=== PATIENT | male | born 1965 | race Hispanic/Latino ===

== ENCOUNTER → 2018-07-18 | Outpatient (CLI) | payer BC ==
--- NOTE | 2018-07-18 10:54 | Diagnostic Imaging Report ---
MRI of the right shoulder without contrast. History: Shoulder pain. Decreased range of motion. Pain not responding to conservative management. Comparison: None Technique: Coronal PD FS, sagital PD FS, and axial PD and PD FS. Findings: Rotator cuff: There is rotator cuff tendinosis with a chronic appearing full-thickness tear involving the supraspinatus and infraspinatus tendons at the humeral insertion site. There is retraction of the torn fibers to the level of the glenoid. There is marked muscle atrophy best seen on sagittal image 22. Additionally, there is subscapularis tendinosis. The teres minor tendon is intact. There are reactive changes in the superior humerus. Osseous acromion complex: Type II acromion with mild lateral downsloping. The humeral head approaches the undersurface of the acromion. Moderate degenerative arthrosis at the acromioclavicular joint with undersurface spurring. Glenohumeral joint: Degeneration and fraying of the labrum. The articular cartilage surfaces are slightly thin. There is a small effusion and mild synovitis in the rotator interval and subcoracoid space. Biceps tendon: Intra-articular biceps tendinosis with fraying at the biceps anchor. Other findings: Negative for muscle denervation or osseous fracture. Impression: Rotator cuff tendinosis with a chronic appearing full-thickness tear involving the supraspinatus and infraspinatus tendons at the humeral insertion site. There is retraction of the torn fibers to the level of the glenoid. There is marked muscle atrophy. Moderate degenerative arthrosis at the acromioclavicular joint. Intra-articular biceps tendinosis with fraying at the biceps anchor. Signed by: Dr. Sachin Houston M.D. on 07/18/2018 10:51 AM
--- NOTE | 2018-07-18 10:57 | Diagnostic Imaging Report ---
MRI of the left shoulder without contrast. History: Shoulder pain. Decreased range of motion. Pain not responding to conservative management. Comparison: None Technique: Coronal PD FS, sagital PD FS, and axial PD and PD FS. Findings: Rotator cuff: There is rotator cuff tendinosis with a chronic appearing full-thickness tear involving the subscapularis tendon at the humeral insertion site. There is retraction of the torn fibers to the level of the glenoid. There is marked muscle atrophy best seen on sagittal image 24. Additionally, there is supraspinatus and infraspinatus tendinosis. The teres minor tendon is intact. There are reactive changes in the superior humerus. Osseous acromion complex: Type II acromion with mild lateral downsloping. The humeral head is well-seated in the glenoid fossa. Moderate degenerative arthrosis at the acromioclavicular joint with undersurface spurring and narrowing of the supraspinatus tendon outlet. Glenohumeral joint: Degeneration and fraying of the labrum. The articular cartilage surfaces are slightly thin. There is a small effusion and mild synovitis in the rotator interval and subcoracoid space. Biceps tendon: Intra-articular biceps tendinosis with fraying at the biceps anchor. Other findings: Negative for muscle denervation or osseous fracture. Impression: Rotator cuff tendinosis with a chronic appearing full-thickness tear involving the subscapularis tendon at the humeral insertion site. There is retraction of the torn fibers to the level of the glenoid. There is marked muscle atrophy. Moderate degenerative arthrosis at the acromioclavicular joint. Intra-articular biceps tendinosis with fraying at the biceps anchor. Signed by: Dr. Sachin Houston M.D. on 07/18/2018 10:54 AM
--- NOTE | 2018-07-18 13:02 | Diagnostic Imaging Report ---
History: Low back and neck pain Comparison studies: None Technique: Sagittal T1, T2 and IR, axial T2 and axial gradient echo Intravenous contrast: None Findings: Alignment: Straightening of the cervical lordosis No scoliosis. Cervicomedullary junction: No abnormalities. Patent foramen magnum. Soft tissues: No T2 hyperintense inflammatory changes. Spinal cord: Normal in size and signal from the foramen magnum through T4 Vertebrae: Normal in height and signal intensity. Subcentimeter nondeforming hemangioma at T1 and T4 vertebral bodies.. No fractures, infection or neoplasm. Degenerative changes: Disc degeneration with loss of T2 signal. Mild Modic type I changes at C6-7 C2-C3: Small central annular fissure with patent canal and foramina C3-C4: Patent canal and foramina C4-C5: Small central disc osteophyte complex with patent canal and foramina C5-C6: Asymmetric left disc osteophyte complex and left uncinate process hypertrophy results in mild left subarticular and foraminal narrowing C6-C7: Diffuse disc osteophyte complex and left uncinate process hypertrophy results in mild canal stenosis and mild left foraminal narrowing C7-T1: No abnormalities. IMPRESSION: 1. Mild degenerative left foraminal narrowing at C5-6 and C6-7. Mild left degenerative subarticular narrowing at C5-6. Mild degenerative canal stenosis at C6-7. 2. Diffuse disc degeneration with mild Modic type I changes at C6-7. Signed by: DR Jake Reyes M.D. on 07/18/2018 12:59 PM
--- NOTE | 2018-07-18 13:12 | Diagnostic Imaging Report ---
History: Low back pain Comparison studies: None Technique: Sagittal, coronal and axial T2 , sagittal T1 and IR, axial spin density oblique. Intravenous contrast: None Findings: Number of lumbar vertebral bodies:5 Alignment: Normal lordosis.No scoliosis. Soft tissues: No T2 hyperintense inflammatory changes. Paraspinal muscles: No signal abnormalities. No atrophy. Lower thoracic cord:Normal in signal and morphology. The tip of the conus is at L1. Cauda equina: No masses. No arachnoiditis. Vertebrae: Normal in height and signal intensity. No compression fractures, infection or neoplasm. Degenerative changes: L1-L2: No abnormalities. L2-L3: Disc degeneration with loss of T2 signal. Diffuse disc bulge with superimposed central annular fissure and mild facet hypertrophy results in minimal canal stenosis and mild bilateral foraminal narrowing. L3-L4: Disc degeneration with loss of T2 signal. Schmorl node at L4 superior endplate. Diffuse disc bulge without significant canal stenosis and mild bilateral foraminal narrowing. L4-L5: Disc degeneration with loss of T2 signal. Asymmetric left disc bulge with superimposed left central and subarticular disc protrusion and mild facet hypertrophy results in narrowing of the left subarticular recesses and mild bilateral foraminal narrowing. Disc material contacts the descending L5 nerve root on the left. L5-S1: Disc degeneration with loss of T2 signal. Asymmetric left disc bulge with superimposed left foraminal disc protrusion results in no significant canal stenosis and mild left foraminal narrowing. Additional findings: 2 cm T2 hyperintense lesion is seen in segment 5 of the liver, could be related to hemangioma. Small right kidney. IMPRESSION: Narrowing of the left subarticular recess with disc material contacting the descending L5 nerve root secondary to left central and subarticular disc protrusion. Other degenerative changes causes no significant (moderate or severe) foraminal narrowing or canal stenosis Signed by: DR Jake Reyes M.D. on 07/18/2018 1:09 PM
== END ==
LOC: MRI 07:22
PROVIDERS: ATTEND Anesthesiology Pain Medicine
DX: M54.2 Cervicalgia (principal); M54.5 Low back pain; M25.512 Pain in left shoulder; M25.511 Pain in right shoulder; S46.812A Strain of other muscles, fascia and tendons at shoulder and upper arm level, left arm, initial encounter; S46.811A Strain of other muscles, fascia and tendons at shoulder and upper arm level, right arm, initial encounter
CPT/HCPCS: 72141; 72148